=== PATIENT | male | born 1940 | race Caucasian/White ===

== ENCOUNTER → 2017-07-25 | Day surgery (SDC) | payer MEDICARE, OTHER ==
[2017-07-21 11:44] LABS: BASOPHILS % 0.1 % (0.0-1.0); HEMATOCRIT 43.7 % (34.2-44.1); HEMOGLOBIN 14.9 g/dL (12.0-16.0); LYMPHOCYTES # (AUTO) 0.9 (1.0-3.2); LYMPHOCYTES % 9.8 % (18.0-39.1); MEAN CORPUSCULAR HEMOGLOBIN 32.4 pg (28-32); MEAN CORPUSCULAR HGB CONC 34.1 g/dL (31-35); MONOCYTES # (AUTO) 0.4 (0.2-0.8); MONOCYTES % 4.3 % (4.4-11.3); NEUTROPHILS # (AUTO) 7.7 (2.1-6.9); NEUTROPHILS % 84.9 % (38.7-80.0); PLATELET COUNT 197 x10e3/uL (140-360)
--- NOTE | 2017-07-21 11:45 | Diagnostic Imaging Report ---
PROCEDURE: X-RAY CHEST, TWO VIEWS COMPARISON: None. INDICATIONS: PRE OPERATIVE CHEST X-RAY FOR FINGER SURGERY FINDINGS: LUNGS: No consolidations or edema. PLEURA: No effusions or pneumothorax. HEART \T\ MEDIASTINUM: The heart is within normal size-limits. BONES \T\ SOFT TISSUES: No acute findings. CONCLUSION: No acute thoracic abnormality. Dictated by: Darnell Molina M.D. on 07/21/2017 at 11:48 Electronically approved by: Darnell Molina M.D. on 07/21/2017 at 11:48
[2017-07-21 12:05] LABS: ANION GAP 13.3 mmol/L (8-16); CALCIUM 10.1 mg/dL (8.4-10.2); CREATININE, SERUM 1.19 mg/dL (0.57-1.11); POTASSIUM 5.3 mmol/L (3.5-5.1)
[~2017-07-25] MED LIST: ASPIR 8181 MG PO; BUPIVACAINE HCL 0.5% INJ 30 ML VIAL INJ ONE; CEFAZOLIN SOD 1 GM VIAL ONE; DESFLURANE 240 ML BTL INH ONE; DEXAMETHASONE SOD PHOS INJ 4 MG/ML VIAL ONE; FAMOTIDINE 20 MG/2 ML VIAL IV ONE; FENTANYL CITRATE/PF 100MCG/2 ML INJ ONE; HYZAAR 100-12.1 EACH; KETOROLAC TROMETHAMINE 30 MG/ML VIAL ONE; LEVOTHYROXINE75 MCG PO; LIDOCAINE HCL 1% 30ML-PF VIAL ONE; LIDOCAINE HCL 2% LOCAL INJ 5 ML SDV VIAL INJ ONE; MIDAZOLAM HCL 2 MG/2 ML VIAL ONE; MUPIROCIN 2% OINT 22 GM TUBE ONE; OMEPRAZOLE40 MG; ONDANSETRON HCL INJ 2 MG/ML VIAL ONE; PROPOFOL IV EMULSION 10 MG/ML 20 ML VIAL ONE; SCOPOLAMINE 1.5 MG PATCH ONE
--- OUTSIDE RECORDS SUMMARY | 2017-07-25 06:03 | XMS REPORT ---
[facility] Address Unknown Phone Unavailable Care Team Providers Care Bale Piler Name Role Phone SHANA CÁRDENAS Unavailable Unavailable Problems This patient has no known problems. Allergies, Adverse Reactions, Alerts This patient has no known allergies or adverse reactions. Medications This patient has no known medications. Results Test Description Test Time Test Comments Text Results Atomic Results Result Comments CHEST 2 VIEWS [place] [address] Patient Name: ABHISHEK STALLWORTH MR #: [id number] : 1940 Age/Sex: 76/F Req # : [id number] Adm Physician: Ordered by: SUSANNAH BOWLES MD Report #: [id number] Location: OR Room/Bed: Procedure: DX/CHEST 2 VIEWS Exam Date: 07/21/17 Exam Time: 1100 REPORT STATUS: Signed PROCEDURE: X-RAY CHEST, TWO VIEWS COMPARISON: None. INDICATIONS: PRE OPERATIVE CHEST X-RAY FOR FINGER SURGERY FINDINGS: LUNGS: No consolidations or edema. PLEURA: No effusions or pneumothorax. HEART T MEDIASTINUM: The heart is within normal size-limits. BONES T SOFT TISSUES: No acute findings. CONCLUSION: No acute thoracic abnormality. Dictated by: Violetta Rosairo M.D. on 07/21/2017 at 11:48 Electronically approved by: Violetta Rosario M.D. on 07/21/2017 at 11:48 Dictated By: VIOLETTA ROSARIO MD [id number] Transcribed By: JACOB on 07/21/17 1148 COPY TO: SUSANNAH BOWLES MD
--- NOTE | 2017-07-25 16:02 | Operative Report ---
DATE OF PROCEDURE: July 25, 2017 PREOPERATIVE DIAGNOSIS: Dislocation right ring finger proximal interphalangeal joint. POSTOPERATIVE DIAGNOSIS: Dislocation right ring finger proximal interphalangeal joint, disruption of central slip. PROCEDURES: Open reduction and percutaneous pinning of right ring finger proximal interphalangeal joint dislocation and repair of central slip. ANESTHESIA: General. HISTORY: The patient is a 76-year-old right-hand dominant male who sustained a closed dislocation of the right ring finger several weeks ago. The patient was referred several days ago for evaluation when he went to see his primary care physician, who had radiographs performed which showed a dorsal dislocation of the PIP joint. The patient was seen by me several days ago and attempted reduction was performed under local block, but this was unsuccessful. Patient now presents for definitive reduction of right ring finger PIP joint dislocation. Risks, benefits, and alternative treatment were discussed with the patient. He is prepared to undergo the procedures outlined. PROCEDURE IN DETAIL: Patient was marked preoperatively in the holding area. He was brought to the operating theater and after the induction of adequate general anesthesia, he was prepped and draped in a supine position. The C-arm fluoroscope was brought in and the dislocation was identified. Using closed reduction techniques, several attempts were made at reducing the finger; however, these were unsuccessful. For this reason, an open procedure was performed. A curvilinear incision was marked out about the dorsal aspect of the ring finger PIP joint. The right upper extremity was exsanguinated and the tourniquet was inflated to a pressure of 250 mmHg. The incision was made through the skin and the subcutaneous tissues. Venous tributaries were controlled with the bipolar cautery. The extensor tendon mechanism was identified. There appeared to be dehiscence of the central slip just directly over the PIP joint and extending towards the base of the middle phalanx. The extensor tendon mechanism was incised in its mid sagittal plane and reflected off of the capsule. The joint capsule was then opened and the joint space was irrigated. There was some hemarthrosis present and this was irrigated free. In addition, there was small particulate bony and cartilaginous pieces, which were irrigated free as well. With the joint open, the dorsal dislocation was easily reduced and the congruity of the surfaces were verified. Under direct visualization, percutaneous pinning using an 0.035 K-wire was performed maintaining the PIP joint in approximately 30 degrees of flexion. At this point, the joint was irrigated once again and the joint capsule and the extensor tendon mechanism were closed with 4-0 Vicryl in interrupted fashion. The wound was irrigated again and the skin was approximated with 5-0 nylon in interrupted horizontal mattress fashion. A Marcaine field block was performed at the base of the right ring finger. Tourniquet was deflated. All the fingers pinked up nicely and a sterile bulky conforming bandage was applied about the right ring finger. A foam aluminum splint was added as a dorsally-based splint to maintain the finger PIP joint at approximately 30 degrees and held in place with Coban. Patient tolerated the procedure well, was brought to recovery room in satisfactory condition, and discharged with a postoperative instruction sheet as well as a followup appointment. Job#: [id number] VAS
== END | disposition home or self-care (01) ==
LOC: OR 06:01 → EDSEX 06:01
PROVIDERS: ATTEND Plastic Surgery
DX: S63.284A Dislocation of proximal interphalangeal joint of right ring finger, initial encounter (principal); I10 Essential (primary) hypertension; X58.XXXA Exposure to other specified factors, initial encounter; Z88.8 Allergy status to other drugs, medicaments and biological substances; Z01.810 Encounter for preprocedural cardiovascular examination; Z01.812 Encounter for preprocedural laboratory examination; Z01.818 Encounter for other preprocedural examination; Z79.82 Long term (current) use of aspirin
CPT/HCPCS: 26785; 36415 ×2; 71046; 80048; 84132; 85025; 93005; J0690; J1100; J1885; J2001 ×2; J2250; J2405